=== PATIENT | male | born 1950 | race Caucasian/White ===

== ENCOUNTER → 2023-01-05 | Outpatient (CLI) | payer MEDICARE | END | disposition home or self-care (01) | LOC: LABWHC1 10:23 | PROVIDERS: ATTEND Family Medicine | DX: E11.9 Type 2 diabetes mellitus without complications (principal) | CPT/HCPCS: 36415; 83036 ==

== ENCOUNTER → 2023-05-05 | Outpatient (CLI) | payer MEDICARE ==
[2023-05-05 16:50] LABS: Basophils % (A) 1.5 %; Eosinophils # (A) 0.26 X 10*3/uL (0.04-0.35); Eosinophils % (A) 3.9 %; HCT 44.6 % (39.6-50.0); HGB 14.5 g/dL (13.0-17.0); Lymphocytes # (A) 2.02 X 10*3/uL (0.90-5.00); MCH 29.6 pg (27.0-32.0); MCHC 32.5 g/dL (32.0-37.0); Monocytes # (A) 0.59 X 10*3/uL (0.20-1.00); Monocytes % (A) 8.8 %; NRBC Per 100 WBC 0 X 10*3/uL (0.00-0.01); Neutrophils # (A) 3.74 X 10*3/uL (1.80-7.70); Neutrophils % (A) 55.4 %; Platelet Count 196 X 10*3/uL (140-440); WBC 6.74 X 10*3/uL (4.50-10.00)
[2023-05-05 16:55] LABS: ALT 41 U/L (10-49); AST 28 U/L (14-35); Albumin 4.4 g/dL (3.8-4.9); Albumin/Globulin Ratio 1.57 Ratio (1.60-3.17); Alkaline Phosphatase 51 U/L (41-126); Blood Urea Nitrogen 17.6 mg/dL (9.0-27.0); Chloride 102 mmol/L (96-109); Chol/HDL Ratio 2.33 Ratio; Globulin 2.8 g/dL (1.6-3.3); Glucose 97 mg/dL (70-110); Potassium 4.8 mmol/L (3.5-5.5); Sodium 139 mmol/L (135-145); Total Bilirubin 1.2 mg/dL (0.3-1.2); Total Protein 7.2 g/dL (6.2-8.2)
[2023-05-05 18:10] LABS: Microalbumin Creatinine Ratio <7 mg/g Cr (0-30)
== END | disposition home or self-care (01) ==
LOC: LABWHC1 10:23
PROVIDERS: ATTEND Family Medicine
DX: Z00.00 Encounter for general adult medical examination without abnormal findings (principal); E11.9 Type 2 diabetes mellitus without complications
CPT/HCPCS: 36415; 80053; 80061; 82043; 82570; 83036; 84153; 85025

== ENCOUNTER 2024-07-08 12:15 | Emergency (ER) | payer MEDICARE ==
--- NOTE | 2024-07-08 12:46 | ED ---
Abdominal Pain HPI - General Stated Complaint: constipation Time Seen by Provider: 07/08/24 12:31 Source: patient, RN notes reviewed Mode of arrival: ambulatory Limitations: no limitations - History of Present Illness Initial Comments: This is a 73-year-old male presenting with constipation x 2 days. Patient states he feels impacted with dizziness when he attempts to pass stool. Patient endorses lower abdominal pain with only passage of small "clumps". Denies fever, chills, chest pain, dyspnea, nausea/vomiting, diarrhea, hematochezia, melena. Denies [id number] medication use. MD Complaint: abdominal pain Onset/Timin -: days(s) - Related Data Previous Rx's Medication Instructions Recorded Docusate [Colace] 100 mg PO DAILY 30 Days #30 capsule 07/08/24 Allergies Allergy/AdvReac Type Severity Reaction Status Date / Time No Known Allergies Allergy Verified 07/08/24 12:55 Review of Systems ROS Statement: Those systems with pertinent positive or pertinent negative responses have been documented in the HPI. ROS Other: All systems not noted in ROS Statement are negative. General Exam General appearance: alert, in no apparent distress Head exam: Present: atraumatic, normocephalic, normal inspection Eye exam: Present: normal appearance, PERRL, EOMI. Absent: scleral icterus, conjunctival injection, periorbital swelling ENT exam: Present: normal exam, mucous membranes moist Neck exam: Present: normal inspection. Absent: tenderness, meningismus, lymphadenopathy Respiratory exam: Present: normal lung sounds bilaterally. Absent: respiratory distress, wheezes, rales, rhonchi, stridor Cardiovascular Exam: Present: regular rate, normal rhythm, normal heart sounds. Absent: systolic murmur, diastolic murmur, rubs, gallop, clicks GI/Abdominal exam: Present: soft, diminished bowel sounds, hypoactive bowel sounds. Absent: distended, tenderness, guarding, rebound, rigid Rectal exam: Present: normal rectal tone, fecal impaction. Absent: black stool, bloody stool, hemorrhoids, mass Extremities exam: Present: normal inspection, full ROM, normal capillary refill. Absent: tenderness, pedal edema, joint swelling, calf tenderness Back exam: Present: normal inspection Neurological exam: Present: alert, oriented X3, CN II-XII intact Psychiatric exam: Present: normal affect, normal mood Skin exam: Present: warm, dry, intact, normal color. Absent: rash Course Vital Signs 07/08/24 12:55 Temperature 97.7 F Pulse Rate 95 Respiratory 22 Rate Blood Pressure 129/81 O2 Sat by Pulse 97 Oximetry Medical Decision Making - Medical Decision Making Was pt. sent in by a medical professional or institution (KATHARINE Mena, DIRECTOR OF CONTENT MARKETING, urgent care, hospital, or usp...) When possible be specific @ -[No] Did you speak to anyone other than the patient for history (EMS, parent, family, police, friend...)? What history was obtained from this source @ -[No] Did you review nursing and triage notes (agree or disagree)? Why? @ -[I reviewed and agree with nursing and triage notes] Were old charts reviewed (outside hosp., previous admission, EMS record, old EKG, old radiological studies, urgent care reports/EKG's, usp records)? Report findings @ -[No old charts were reviewed] Differential Diagnosis (chest pain, altered mental status, abdominal pain women, abdominal pain men, vaginal bleeding, weakness, fever, dyspnea, syncope, headache, dizziness, GI bleed, back pain, seizure, CVA, palpatations, mental health, musculoskeletal)? @ -Differential Abdominal Pain Men: Appendicitis, cholecystitis, diverticulosis, ischemic bowel, pancreatitis, hepatitis, UTI, gastroenteritis, AAA, incarcerated hernia, bowel obstruction, constipation, inflammatory bowel, hepatitis, peptic ulcer disease, splenic infarction, perforated viscus, testicular torsion, this is not meant to be an all-inclusive list EKG interpreted by me (3pts min.). @ -Not done X-rays interpreted by me (1pt min.). @ -KUB shows nonspecific abdomen CT interpreted by me (1pt min.). @ -[None done] U/S interpreted by me (1pt. min.). @ -[None done] What testing was considered but not performed or refused? (CT, X-rays, U/S, labs)? Why? @ -[None] What meds were considered but not given or refused? Why? @ -[None] Did you discuss the management of the patient with other professionals (professionals i.e. KATHARINE Mena, DIRECTOR OF [employer]ENT MARKETING, lab, RT, psych nurse, social work specialist, sawyer cork slabs, teacher, tank officer, rn case manager hospice)? Give summary @ -[No] Was smoking cessation discussed for >3mins.? @ -[No] Was critical care preformed (if so, how long)? @ -[No] Were there social determinants of health that impacted care today? How? (Homelessness, low income, unemployed, alcoholism, drug addiction, transporta tion, low edu. Level, literacy, decrease access to med. care, fdc, rehab)? @ -[No] Was there de-escalation of care discussed even if they declined (Discuss DNR or withdrawal of care, Hospice)? DNR status @ -[No] What co-morbidities impacted this encounter? (DM, HTN, Smoking, COPD, CAD, Cancer, CVA, ARF, Chemo, Hep., AIDS, mental health diagnosis, sleep apnea, morbid obesity)? @ -[None] Was patient admitted / discharged? Hospital course, mention meds given and route, prescriptions, significant lab abnormalities, going to OR and other pertinent info. @ -[hospital course] Undiagnosed new problem with uncertain prognosis? @ -[No] Drug Therapy requiring intensive monitoring for toxicity (Heparin, Nitro, Insulin, Cardizem)? @ -[No] Were any procedures done? @ -[No] Diagnosis/symptom? @ -Constipation/impaction Acute, or Chronic, or Acute on Chronic? @ -Acute Uncomplicated (without systemic symptoms) or Complicated (systemic symptoms)? @ -Uncomplicated Side effects of treatment? @ -[No] Exacerbation, Progression, or Severe Exacerbation? @ -[No] Poses a threat to life or bodily function? How? (Chest pain, [place], [place], pneumonia, PE, COPD, DKA, ARF, appy, cholecystitis, CVA, Diverticulitis, Homicidal, Suicidal, threat to staff... and all critical care pts) @ -[No] - Lab Data Lab Results 07/08/24 Range/Units 16:02 Stool Occult Blood Negative (Negative) Disposition Clinical Impression: Constipation Disposition: HOME SELF-CARE Condition: Good Prescriptions: Docusate [Colace] 100 mg PO DAILY 30 Days #30 capsule Is patient prescribed a controlled substance at d/c from ED?: No Referrals: Karel Sullivan MD [Primary Care Provider] - 1-2 days Time of Disposition: 16:21
[2024-07-08] MEDS: MAGNESIUM CITRATE 296 ML BOTTLE PO ONE (13:15)
--- NOTE | 2024-07-08 13:23 | XR ---
EXAMINATION TYPE: XR KUB DATE OF EXAM: 07/08/2024 1:12 PM COMPARISON: None. CLINICAL INDICATION: Male, 73 years old with history of Constipation, abdominal pain, TECHNIQUE: XR KUB view(s) obtained. FINDINGS: There is a normal bowel gas pattern. Nonspecific bowel gas may be in the right upper quadrant. Cholecystectomy clips are present. No fecal retention is evident. Previous suspected ureteral stone n ot identified. No organomegaly is present. IMPRESSION: 1. Nonspecific abdomen [facility] Jesús Prado, , 07/08/2024 1:20 PM
[2024-07-08] MEDS: SODIUM CHLORIDE 0.9% 1,000 ML IV STA (16:03)
[2024-07-08 16:44] VITALS: BP 118/79; PULSE 99; RESP 18; TEMP 98.4
== END 2024-07-08 16:43 | disposition home or self-care (01) ==
LOC: EC 12:15
DX: K59.00 Constipation, unspecified (principal)
CPT/HCPCS: 36415; 74018; 82272; 99284